=== PATIENT | male | born 1990 | race Caucasian/White ===

== ENCOUNTER 2021-03-30 08:48 | Emergency (ER) | payer OTHER, SELFPAY ==
[2021-03-30] MEDS ORDERED: Ketorolac Tromethamine 30 MG/ML VIAL ONE (09:16)
[2021-03-30 09:51] LABS: #Eosinphils 0.1 thou/uL (0.0-0.7); #Lymphocytes 1.6 thou/uL (1.20-3.40); #Monocytes 0.8 thou/uL (0.11-0.59); #Neutrophils 9.3 thou/uL (1.40-6.50); %Basophils 0.3 % (0.0-1.0); %Eosinophils 0.8 % (0.0-10.0); %Lymphocytes 13.4 % (21.0-51.0); %Monocytes 6.7 % (0.0-10.0); %Neutrophils 78.9 % (42.0-75.0); Hemoglobin 15.7 g/dL (14.0-18.0); Mean Corpuscular Hemoglobin 31.1 pg (27.0-31.0); Mean Corpuscular Volume 91.7 fL (78.0-98.0); Mean Platelet Volume 10.6 fL (7.4-10.4); Platelet Count 188 thou/uL (130-400); RBC Distribution Width 11.3 % (11.5-14.5); Red Blood Cell (RBC) Count 5.06 mill/uL (4.70-6.10); White Blood Cell (WBC) Count 11.7 thou/uL (4.8-10.8)
[2021-03-30 09:59] LABS: ALT (SGPT) 88 U/L (8-55); AST (SGOT) 42 U/L (5-34); Albumin 4.5 g/dL (3.5-5.0); Alkaline Phosphatase 49 U/L (40-110); Anion Gap 13 mmol/L (10-20); BUN (Urea Nitrogen) 16 mg/dL (8.9-20.6); Bilirubin, Total 0.7 mg/dL (0.2-1.2); Calc. Creatinine Clearance 0 mL/min (70-130); Calcium 9.6 mg/dL (7.8-10.44); Carbon Dioxide 26 mmol/L (22-29); Chloride 104 mmol/L (98-107); Globulin 2.9 g/dL (2.4-3.5); Glucose 97 mg/dL (70-105); Potassium 3.7 mmol/L (3.5-5.1); Protein, Total 7.4 g/dL (6.0-8.3); Sodium 139 mmol/L (136-145)
[2021-03-30] MEDS ORDERED: Iopamidol-370 76% 500 ML 1 ML ONE (11:06)
== END 2021-03-30 11:23 | disposition home or self-care (01) ==
LOC: ERS 08:48
DX: S32.019A Unspecified fracture of first lumbar vertebra, initial encounter for closed fracture (principal); W17.89XA Other fall from one level to another, initial encounter
CPT/HCPCS: 74177; 80053; 85025; 96374; J1885; Q9967

== ENCOUNTER 2024-10-04 21:54 | Emergency (ER) | payer SELFPAY ==
[2024-10-04] MEDS ORDERED: Ibuprofen 800 MG TAB ONE (21:57)
[2024-10-04] MEDS ORDERED: Acetaminophen 500 MG TAB ONE (21:57)
== END 2024-10-04 23:26 | disposition home or self-care (01) ==
LOC: ERS 21:54
DX: U07.1 COVID-19 (principal)
CPT/HCPCS: 87428; 99283